=== PATIENT | female | born 1945 | race Caucasian/White ===

== ENCOUNTER 2019-01-27 15:13 | Emergency (ER) | payer MEDICARE, BC, SELFPAY ==
[2019-01-27 15:29] VITALS: BP 147/93; PULSE 73; RESP 18; TEMP 37.1; O2SAT 100
--- NOTE | 2019-01-27 15:46 | DI.RAD_ITS ---
SYMPTOMS/DIAGNOSIS: PAIN RIGHT KNEE: Three views. No acute fracture or dislocation is identified. Mild degenerative changes are seen involving all three joint compartments. There is a small joint effusion. The soft tissues are otherwise unremarkable. IMPRESSION: No acute abnormality. Mild osteoarthritis.
--- NOTE | 2019-01-27 15:46 | DI.RAD_ITS ---
SYMPTOMS/DIAGNOSIS: DISTAL FEMUR AND KNEE PAIN RIGHT FEMUR: Four views. No acute fracture, dislocation, lytic or sclerotic lesion is seen. The hip joint space appears well maintained. The soft tissues are unremarkable. IMPRESSION: No acute abnormality.
[2019-01-27] MEDS: Acetaminophen 325 MG TAB 650 MG PO (16:18)
--- NOTE | 2019-01-27 16:43 | ED.GENADUL_ITS ---
Discharge Plan Disposition Patient Disposition: HOME Discharge Details Chief Complaint: Orthopedic Clinical Impression: Sprain of right knee/leg Primary Care Provider: Manny Sol ED Provider: Buddy Pillai Home Meds and New Rx's Prescriptions: No Action levothyroxine 25 mcg Tablet 25 mcg PO DAILY RF: 0 Discharge Instructions Instructions: Knee Sprain (ED) Additional Instructions: Please use hinged knee brace and crutches for the next 1 week. If symptoms resolve you can discontinue use and follow-up with your primary care physician as needed. If symptoms persist, please follow-up with orthopedics. Please take ibuprofen over the counter - dose according to label. Return to the ER for any worsening or new concerning symptoms. Referrals: [facility] [Provider Group] Manny Sol [Primary Care Provider] - Discharge Data Discharge Date/Time-TO BE ENTERED AT DEPARTURE: 01/27/19 19:13 Medical Decision Making <Klever Ceron NP - Last Filed: 01/31/19 17:53> Patient presenting to the emergency department for chief complaint of right knee injury. Patient states that she was sitting at a table and went to move and position her leg when she noted severe sharp pain to her distal femur and knee. After the event patient could not bear any weight on her right extremity. Patient denies any other injury or trauma, numbness or tingling. Patient does have significant tenderness with any movement or extension or attempt to test ligamentous injury of the knee. She has no tenderness to the proximal tib-fib, no patellar tenderness but does elicit severe pain with palpation of the distal femur and knee. Plan to perform radiological imaging of the femur and knee to rule out of acute fracture. <Buddy Pillai MD - Last Filed: 01/28/19 15:38> Medical Records Care signed out to me by LINSEY Ceron - please see his note regarding ED presentation and course. Plan at signout to follow-up on xray and reassess patient. xray of the right femur interpreted by radiology: FINDINGS: Bones/joints: The joint space appears grossly well preserved. There is asphericity of the femoral head, as could be seen with CAM-type femoroacetabular morphology. No acutely displaced fracture or dislocation is appreciated. There are osteoarthritic changes noted at the visualized segments of the knee joint. Soft tissues: No significant soft tissue swelling. 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 There is osteoarthritis at the visualized segments of the knee joint. No acute skeletal abnormality is otherwise seen. xray of the right knee interpreted by radiology: FINDINGS: Bones/joints: There is mild tricompartment osteoarthritis, which is most pronounced at the lateral tibiofemoral and patellofemoral compartments, and manifested by decreased joint space, and tiny marginal osteophyte formation. There are no acutely displaced fractures or dislocations appreciated. A posterior fabella is incidentally noted. No significant joint effusions. Soft tissues: No significant soft tissue swelling. Vasculature: Soft tissue vascular calcifications are suggested as well. IMPRESSION: Mild osteoarthritis without acute skeletal pathology. Patient reassessed and focally ttp distal lateral thigh and over vastus lateralis or distal IT. Suspect sprain. Plan for knee immobilizer and crutches. I spoke with Dr. Barnard (chief of production orthopedics) about case. I discussed events leading up to ED presentation, exam and diagnostic course. He agress with treatment plan and will see patient in follow-up if pain persists. Patient provided hinged knee brace and crutches. She was able to ambulate with crutches and without difficulty out of the ED per nursing. Usual and customary discharge instructions were provided to the patient. HPI <Klever Ceron NP - Last Filed: 01/31/19 17:53> General Mode of arrival: wheelchair . Date/Time Provider Initiated Documentation: 01/27/19 15:29 . Limitations to Documentation: no limitations . Information obtained by: patient and RN notes reviewed . History of Present Illness 73 year old F presents to the emergency department with the chief complaint of right leg pain, described as severe, with intensity rated at 8. Quality is described as sharp, and is localized to the right and lower extremity. Patient started experiencing this hour(s) (4) and it has been constant. No relieving factors improve symptom(s), Movement worsens symptoms . Patient notes no other symptoms.. Patient did receive the following treatments prior to arrival, other (Acetaminophen at 1030) Related Data Home Medications Medication Instructions Recorded Confirmed levothyroxine 25 mcg PO DAILY 01/27/19 01/27/19 General Stated Complaint: Orthopedic ALAYNA: 3 Review of Systems <Klever Ceron NP - Last Filed: 01/31/19 17:53> Cardiovascular Denies syncope Musculoskeletal Reports as per HPI, Denies numbness and Denies tingling Integumentary/Breasts Denies rash, Denies sores and Denies wounds Neurologic Denies syncope, Denies numbness and Denies tingling PFSH <Klever Ceron NP - Last Filed: 01/31/19 17:53> Medical History Asthma (Chronic) Cataract (Chronic) History of hysterectomy (Chronic) Hyperthyroidism (Chronic) Surgical History History of appendectomy (Chronic) History of cataract surgery (Chronic) History of cholecystectomy (Chronic) History of hernia repair (Chronic) History of tonsillectomy (Chronic) Social History Smoking/Tobacco Use Status: Never Alcohol Intake: current Alcohol Intake frequency: holidays/special occasions only Substance use type: does not use Do you feel safe at home: Yes Do you feel safe in your relationship?: Yes Exam <Klever Ceron NP - Last Filed: 01/31/19 17:53> Const General: cooperative and no acute distress Orientation: alert, awake and oriented x3 Resp Effort & Inspection: normal respiratory effort and able to speak in complete sentences Cardio Rate: regular rate Rhythm: regular rhythm Extrem Left lower extremity: hip/thigh Details: tenderness Location: of the mid upper leg Location: anteriorly, knee Details: tenderness Location: of the medial joint line and of the distal upper leg Details: along the midline and knee ligament exam abnormal (Severe tenderness with any movement of the); no lacerations and no ecchymosis, lower leg Details: normal to inspection; no tenderness, ankle Details: normal to inspection; no tenderness and foot Details: normal capillary refill and vascular exam Details: dorsalis pedis pulse present, posterior tibial pulse present and normal capillary refill Course <Klever Ceron NP - Last Filed: 01/31/19 17:53> Vital Signs Temperature 37.1 C 01/27/19 15:29 Pulse 73 01/27/19 15:29 Respiratory Rate 18 01/27/19 15:29 Blood Pressure 147/93 H 01/27/19 15:29 Pulse Oximetry 100 01/27/19 15:29 Temperature 37.1 C 01/27/19 15:29 Temperature Source Tympanic 01/27/19 15:29 Pulse 73 01/27/19 15:29 Respiratory Rate 18 01/27/19 15:29 Blood Pressure 147/93 H 01/27/19 15:29 Blood Pressure Position Sitting 01/27/19 15:29 Pulse Oximetry 100 01/27/19 15:29 Oxygen Delivery Method Room Air 01/27/19 15:29 Oxygen Flow Rate 0 01/27/19 15:29 Pain Level 8 01/27/19 15:29 Comment 01/27/19 15:29 Sign Out <Klever Ceron NP - Last Filed: 01/31/19 17:53> Sign Out Data: Sign Out Comment: Pending radiological imaging patient signed out to Dr. Buddy Pillai. Last updated by Klever Ceron NP at 01/27/19 17:08
--- NOTE | 2019-01-27 17:56 | DI.VRAD_ITS ---
EXAM: XR Right Femur EXAM DATE/TIME: 01/27/2019 3:48 PM CLINICAL HISTORY: 73 years old, female; Right; Patient HX: Pain RT knee TECHNIQUE: Imaging protocol: XR Right femur. Views: 2 views COMPARISON: No relevant prior studies available. FINDINGS: Bones/joints: The joint space appears grossly well preserved. There is asphericity of the femoral head, as could be seen with CAM-type femoroacetabular morphology. No acutely displaced fracture or dislocation is appreciated. There are osteoarthritic changes noted at the visualized segments of the knee joint. Soft tissues: No significant soft tissue swelling. 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 There is osteoarthritis at the visualized segments of the knee joint. No acute skeletal abnormality is otherwise seen. Dictated and Authenticated by: Joseph Austin MD. Ordering:KATELYNN Ernst MD
--- NOTE | 2019-01-27 17:58 | DI.VRAD_ITS ---
EXAM: XR Right Knee EXAM DATE/TIME: 01/27/2019 5:28 PM CLINICAL HISTORY: 73 years old, female; Knee; Right; Patient HX: Pain. No known trauma TECHNIQUE: Imaging protocol: XR Right knee. Views: 3 views. COMPARISON: No relevant prior studies available. FINDINGS: Bones/joints: There is mild tricompartment osteoarthritis, which is most pronounced at the lateral tibiofemoral and patellofemoral compartments, and manifested by decreased joint space, and tiny marginal osteophyte formation. There are no acutely displaced fractures or dislocations appreciated. A posterior fabella is incidentally noted. No significant joint effusions. Soft tissues: No significant soft tissue swelling. Vasculature: Soft tissue vascular calcifications are suggested as well. IMPRESSION: Mild osteoarthritis without acute skeletal pathology. Dictated and Authenticated by: Joseph Austin MD. Ordering:KATELYNN Ernst MD
[2019-01-27 19:25] VITALS: BP 145/80; PULSE 70; RESP 18; O2SAT 97
== END 2019-01-27 19:13 | disposition home or self-care (01) ==
PROVIDERS: Emergency Provider Student in an Organized Health Care Education/Training Program; PCP Neuromusculoskeletal Medicine & OMM
DX: S83.91XA Sprain of unspecified site of right knee, initial encounter (principal); X50.9XXA Other and unspecified overexertion or strenuous movements or postures, initial encounter
CPT/HCPCS: 29505; 73552; 73562; 99284; E0114; L1830

== ENCOUNTER → 2020-12-28 09:36 | Outpatient (BNVA) | payer MEDICARE, BC, SELFPAY | PROVIDERS: PCP Neuromusculoskeletal Medicine & OMM; Referring Provider Neuromusculoskeletal Medicine & OMM; Visit Provider Psychiatry & Neurology Neurology | DX: R25.1 Tremor, unspecified (principal); R20.8 Other disturbances of skin sensation | CPT/HCPCS: 99215 ==